=== PATIENT | female | born 1995 | race Hispanic/Latino ===

== ENCOUNTER 2019-06-04 20:12 | Inpatient (IN) | payer MEDICAID, OTHER ==
[~2019-06-04] VITALS: Ht 152.4 cm; Wt 74.8 kg
[2019-06-04] MEDS ORDERED: LACTATED RINGERS 1000ML 1,000 ML IV PRN (20:42)
[2019-06-04] MEDS ORDERED: OXYTOCIN-LR 20 UNITS/1000 ML 1,000 ML IV SCH (20:45)
[2019-06-04 20:50] LABS: APPEARANCE,URINE Clear (CLEAR); BILIRUBIN,URINE Negative (NEGATIVE); COLOR,URINE Yellow (YELLOW); GLUCOSE, URINE (UA) Negative (NEGATIVE); KETONES,URINE Trace mg/dL (NEGATIVE); LEUKOCYTE ESTERASE ,URINE Trace (NEGATIVE); NITRATE,URINE Negative (NEGATIVE); OCCULT BLOOD,URINE Negative (NEGATIVE); PROTEIN,URINE Negative (NEGATIVE); UROBILINOGEN,URINE 0.2 mg/dL (0.2-1.0)
[2019-06-04 21:24] LABS: BACTERIA,URINE Rare /HPF (None Seen); RBC,URINE 0-1 /HPF (0-1); SQUAMOUS EPITHELIAL CELL,UR Few /HPF (0-2); WBC,URINE 0-1 /HPF (0-1)
[2019-06-04 22:04] LABS: HEMATOCRIT 37.2 % (36-48); MEAN CORPUSCULAR HEMOGLOBIN 30.4 pg (27.0-33.0); MEAN CORPUSCULAR VOLUME 92.1 fL (79-99); PLATELET COUNT (AUTO) 299 K/uL (130-400); RED BLOOD CELL COUNT(AUTO) 4.04 MIL/uL (4.00-5.50); WHITE BLOOD COUNT (AUTO) 8.6 K/uL (4.8-10.8)
[2019-06-05] MEDS ORDERED: OXYTOCIN 10 USP UNITS/ML 20 UNIT in LACTATED RINGERS 1000ML 1,000 ML IV SCH (04:00)
[2019-06-05] MEDS ORDERED: MEPERIDINE-PF 50 MG/ML SYG ONE (09:08)
[2019-06-05] MEDS ORDERED: PROMETHAZINE HCL 25 MG/ML 1ML AMPULE IM SCH (09:15)
[2019-06-05] MEDS ORDERED: MEPERIDINE-PF 50 MG/ML SYG IVP SCH (09:15)
[2019-06-05] MEDS ORDERED: WITCH HAZEL 1 PAD TP PRN (10:30)
[2019-06-05] MEDS ORDERED: DIPH,PERTUSS(ACELL),TET VAC/PF 0.5 ML VIAL IM PRN (10:30)
[2019-06-05] MEDS ORDERED: ACETAMINOPHEN-CODEINE 300/30MG TAB PO PRN (10:30)
[2019-06-05] MEDS ORDERED: BENZOCAINE/LANOLIN/ALOE VERA 60 ML AEROSOL TP PRN (10:30)
[2019-06-05] MEDS ORDERED: OXYTOCIN-LR 20 UNITS/1000 ML 1,000 ML IV SCH (10:30)
[2019-06-05] MEDS ORDERED: LANOLIN 30GM OINTMENT TP PRN (10:30)
[2019-06-05] MEDS ORDERED: ACETAMINOPHEN 325 MG TAB PO PRN (10:30)
[2019-06-05] MEDS ORDERED: MEASLES/MUMPS/RUBELLA VACCINE, LIVE 0.5 ML/VIAL SQ PRN (10:30)
[2019-06-05 13:04] VITALS: BP 115/67
[2019-06-05] MEDS ORDERED: PREN-154 PO (13:15)
[2019-06-05] MEDS: IBUPROFEN 600 MG TABLET PO PRN ×2 (13:21→22:41)
[2019-06-05 16:55] VITALS: BP 108/71
[2019-06-05 20:14] VITALS: BP 112/74
[2019-06-05] MEDS: DOCUSATE SODIUM 100 MG CAP PO SCH (21:10)
[2019-06-06 00:01] VITALS: BP 98/61
[2019-06-06 03:31] VITALS: BP 95/56
[2019-06-06 05:35] LABS: HEMATOCRIT 32.4 % (36-48); MEAN CORPUSCULAR HEMOGLOBIN 31.2 pg (27.0-33.0); MEAN CORPUSCULAR HGB CONC 33.7 g/dL (32.0-36.0); MEAN CORPUSCULAR VOLUME 92.6 fL (79-99); PLATELET COUNT (AUTO) 233 K/uL (130-400); RED CELL DISTRIBUTION WIDTH 14.2 % (11.0-15.5); WHITE BLOOD COUNT (AUTO) 7.8 K/uL (4.8-10.8)
[2019-06-06 06:10] LABS: HEPATITIS Bs ANTIGEN SCREEN P Negative (Negative)
[2019-06-06 08:00] VITALS: BP 114/75
--- NOTE | 2019-06-06 08:15 | NUR ---
ARGENIS RUSSO CNM ROUNDED AND DISCHARGED PATIENT TO HOME. PATIENT IS STABLE AND DENIES PAIN.
[2019-06-06] MEDS: DOCUSATE SODIUM 100 MG CAP PO SCH (08:44)
[2019-06-06] MEDS: IBUPROFEN 600 MG TABLET PO PRN (08:46)
[2019-06-06 12:11] VITALS: BP 108/62
--- NOTE | 2019-06-06 13:45 | NUR ---
PATIENT WAS TAKEN VIA W/C CARRYING BABY IN ARMS TO FAMILY. DISCHARGED TO HER FAMILY IN STABLE CONDITION. DENIES PAIN.
== END 2019-06-06 13:45 | disposition home or self-care (01) | DRG 807 ==
LOC: LDH 20:12 → WSH 06-05 12:55
PROVIDERS: ADMIT Obstetrics & Gynecology; ATTEND Obstetrics & Gynecology
PROC: 10E0XZZ Delivery of Products of Conception, External Approach (ICD-10-PCS; principal; 2019-06-05)
PROC: 10907ZC Drainage of Amniotic Fluid, Therapeutic from Products of Conception, Via Natural or Artificial Opening (ICD-10-PCS; 2019-06-05)
PROC: 3E033VJ Introduction of Other Hormone into Peripheral Vein, Percutaneous Approach (ICD-10-PCS; 2019-06-05)
PROC: 3E0234Z Introduction of Serum, Toxoid and Vaccine into Muscle, Percutaneous Approach (ICD-10-PCS; 2019-06-06)
DX: O80 Encounter for full-term uncomplicated delivery (principal); Z37.0 Single live birth; Z3A.38 38 weeks gestation of pregnancy; Z23 Encounter for immunization
CPT/HCPCS: 36415; 81001; 85027; 86592; 86850; 86900; 86901; 87340; 90715; G0378; J2175; J2590; J7120